=== PATIENT | male | born 1965 | race Caucasian/White ===

== ENCOUNTER 2020-10-03 21:39 | Emergency (ER) | payer BC ==
[2020-10-03] MEDS ORDERED: predniSONE 20 MG TAB ONE (22:31)
[2020-10-03] MEDS ORDERED: Ketorolac Tromethamine 30 MG/ML VIAL ONE (22:31)
[2020-10-03] MEDS ORDERED: Cyclobenzaprine 10 MG TAB ONE (22:31)
== END 2020-10-03 23:20 | disposition home or self-care (01) ==
LOC: CSHERS 21:39
DX: M54.5 Low back pain (principal); I10 Essential (primary) hypertension; I48.91 Unspecified atrial fibrillation; Z79.82 Long term (current) use of aspirin; Z79.899 Other long term (current) drug therapy
CPT/HCPCS: 96372; 99283; J1885; J7512

== ENCOUNTER 2021-02-21 07:00 | Inpatient (IN) | payer BC ==
[2021-02-20 13:29] VITALS: BMI 38.9
[2021-02-21] MEDS ORDERED: Acetaminophen 500 MG TAB ONE (07:09)
[2021-02-21] MEDS ORDERED: Gabapentin 300 MG CAP ONE (07:09)
[2021-02-21] MEDS ORDERED: CeleCOXIB 100 MG CAP ONE (07:09)
[2021-02-21] MEDS ORDERED: Lidocaine 1% MPF 2 ML VIAL ONE (07:10)
[2021-02-21] MEDS ORDERED: Levofloxacin 500 mg/D5W 100 ml Premix Bag ONE (08:05)
[2021-02-21] MEDS ORDERED: Ropivacaine 0.2% HCl/PF 20 ML ONE ×2 (08:24→09:16)
[2021-02-21] MEDS ORDERED: Ropivacaine 0.5% HCl/PF (150 MG/30 ML VIAL) ONE ×2 (08:24)
[2021-02-21] MEDS ORDERED: Fentanyl 100 MCG/2 ML VIAL ONE ×4 (08:30→11:51)
[2021-02-21] MEDS ORDERED: Midazolam HCl 2 mg/2 ml Vial ONE (08:30)
[2021-02-21] MEDS ORDERED: PROPOFOL 20 ML ONE ×2 (09:11→10:00)
[2021-02-21] MEDS ORDERED: Ondansetron PF 4 MG/2 ML Vial ONE (09:12)
[2021-02-21] MEDS ORDERED: diphenhydrAMINE 50 MG/ML VIAL ONE (09:12)
[2021-02-21] MEDS ORDERED: Ketorolac Tromethamine 30 MG/ML VIAL ONE ×2 (09:12→09:15)
[2021-02-21] MEDS ORDERED: Lidocaine 2% PF 5 ML VIAL ONE (09:12)
[2021-02-21] MEDS ORDERED: Dexamethasone 4 mg/ml Vial ONE (09:12)
[2021-02-21] MEDS ORDERED: Heparin 5,000 UNITS/ML VIAL ONE (09:15)
[2021-02-21] MEDS ORDERED: EPINEPHrine 1 MG/ML AMP ONE (09:15)
[2021-02-21] MEDS ORDERED: Ropivacaine 0.2% HCl/PF 40 ML ONE (09:16)
[2021-02-21] MEDS ORDERED: Tranexamic Acid 1,000 MG/10 ML VIAL ONE (09:16)
[2021-02-21] MEDS ORDERED: Lidocaine 1% w/Epinephrine 1:100K 30 ML VIAL ONE (09:17)
[2021-02-21] MEDS ORDERED: Neomycin-Polymyxin 1 ML AMP ONE (09:17)
[2021-02-21] MEDS ORDERED: Zolpidem Tartrate 5 MG TAB PO PRN ×2 (09:41→11:15)
[2021-02-21] MEDS ORDERED: diphenhydrAMINE 25 MG CAP PO PRN (09:41)
[2021-02-21] MEDS ORDERED: Ondansetron PF 4 MG/2 ML Vial IVP PRN ×2 (09:41→11:15)
[2021-02-21] MEDS ORDERED: Promethazine HCl 25 MG/ML VIAL IM PRN ×2 (09:41→11:15)
[2021-02-21] MEDS ORDERED: HYDROcodone/Acetaminophen 10/325 mg Tablet PO PRN (09:41)
[2021-02-21] MEDS ORDERED: Acetaminophen 325 MG TAB PO PRN (09:41)
[2021-02-21] MEDS ORDERED: traMADol HCl 50 MG TAB PO PRN (09:41)
[2021-02-21] MEDS ORDERED: Fentanyl 100 MCG/2 ML VIAL SLOW IVP PRN (09:41)
[2021-02-21] MEDS ORDERED: ePHEDrine Sulfate 50 MG/10 ML VIAL ONE ×2 (10:04→10:48)
[2021-02-21] MEDS ORDERED: Glycopyrrolate 0.2 MG/ML 5 ML SYRINGE ONE (10:32)
[2021-02-21] MEDS ORDERED: Phenylephrine 10 MG/ML VIAL ONE (10:39)
[2021-02-21] MEDS ORDERED: Phenylephrine 10 MG/ML VIAL IV SCH (10:45)
[2021-02-21] MEDS ORDERED: HYDROcodone/Acetaminophen 5/325 mg Tablet PO PRN (11:15)
[2021-02-21] MEDS ORDERED: Ropivacaine HCl/PF 200 MG in Premix Bag 1 BAG NERVE BLCK SCH (11:15)
[2021-02-21] MEDS: Dextrose 5 %-0.45 % NaCl 1,000 ML IV SCH ×2 (14:45→17:23)
[2021-02-21] MEDS ORDERED: Cyclobenzaprine 10 MG TAB PO PRN (15:01)
[2021-02-21] MEDS ORDERED: Lorazepam 1 MG TAB PO PRN (15:10)
[2021-02-21] MEDS: HYDROcodone/Acetaminophen 5/325 mg Tablet PO PRN ×2 (15:34→20:31)
[2021-02-21 16:37] VITALS: BP 112/68; TEMP 97.4
[2021-02-21] MEDS: Ketorolac Tromethamine 30 MG/ML VIAL IVP SCH (17:23)
[2021-02-21] MEDS: CEFAZOLIN 2 GM in Premix Bag 1 BAG IVPB SCH (17:23)
[2021-02-21] MEDS: Dronedarone HCl 400 MG TAB PO SCH (17:23)
[2021-02-21] MEDS ORDERED: Ketorolac Tromethamine 30 MG/ML VIAL IVP SCH (18:00)
[2021-02-21] MEDS ORDERED: Loratadine 10 MG TAB PO SCH (21:00)
[2021-02-21] MEDS: Aspirin 81 mg Enteric Coated Tablet PO SCH (22:08)
[2021-02-21] MEDS: Potassium Chloride 10 MEQ TAB PO SCH (22:09)
[2021-02-22] MEDS: Ketorolac Tromethamine 30 MG/ML VIAL IVP SCH ×2 (00:37→05:58)
[2021-02-22] MEDS: CEFAZOLIN 2 GM in Premix Bag 1 BAG IVPB SCH (00:39)
[2021-02-22] MEDS: HYDROcodone/Acetaminophen 5/325 mg Tablet PO PRN ×2 (03:03→08:15)
[2021-02-22 06:10] LABS: Hemoglobin 11.1 g/dL (13.5-17.5); Mean Corpuscular HGB CONC 31.9 g/dL (32.0-36.0); Mean Corpuscular Hemoglobin 30.2 pg (27.0-33.0); Mean Corpuscular Volume 94.6 fl (81.2-95.1); Mean Platelet Volume 9.4 fl (7.4-10.4); Platelet Count 225 10x3/uL (150-450); RBC Distribution Width 13.5 % (11.5-14.5); Red Blood Cell (RBC) Count 3.68 10x6/uL (4.32-5.72); White Blood Cell (WBC) Count 11.4 10x3/uL (3.5-10.5)
[2021-02-22] MEDS: Dextrose 5 %-0.45 % NaCl 1,000 ML IV SCH (07:44)
[2021-02-22] MEDS: Aspirin 81 mg Enteric Coated Tablet PO SCH (08:14)
[2021-02-22] MEDS: Dronedarone HCl 400 MG TAB PO SCH (08:14)
[2021-02-22] MEDS: Potassium Chloride 10 MEQ TAB PO SCH (08:15)
[2021-02-22] MEDS ORDERED: Ferrous Gluconate 324 MG TAB PO SCH (09:00)
[2021-02-22] MEDS ORDERED: Multivitamin W/ Minerals 1 TAB PO SCH (09:00)
[2021-02-22] MEDS ORDERED: Zinc Gluconate 50 MG TAB PO SCH (09:00)
[2021-02-22] MEDS ORDERED: DHA PO SCH (09:00)
[2021-02-22] MEDS ORDERED: OMEGA PO SCH (09:00)
[2021-02-22] MEDS ORDERED: Ascorbic Acid 500 mg Chewable Tablet PO SCH (09:00)
[2021-02-22] MEDS ORDERED: Ubidecarenone 50 MG CAP PO SCH (09:00)
[2021-02-22] MEDS ORDERED: Stress 600 With Zinc 1 TAB PO SCH (09:00)
[2021-02-22] MEDS ORDERED: Senokot S 8.6-50 MG TAB PO SCH (09:00)
[2021-02-22] MEDS ORDERED: GLUCOSAMINE CHONDROITIN COMPLEX PO SCH ×2 (09:00)
[2021-02-22] MEDS ORDERED: FATTY ACIDS PO SCH (09:00)
[2021-02-22] MEDS ORDERED: Hydrochlorothiazide 25 MG TAB PO SCH (09:00)
[2021-02-22] MEDS ORDERED: Lisinopril 20 MG TAB PO SCH (09:00)
[2021-02-22] MEDS ORDERED: Venlafaxine HCl XR 75 MG CAP PO SCH (09:00)
[2021-02-22] MEDS ORDERED: EPA PO SCH (09:00)
[2021-02-24 10:16] LABS: Fungus Stain Final report (.)
[2021-03-22 07:20] LABS: Fungus Culture Final report (.)
== END 2021-02-22 09:40 | disposition home or self-care (01) | DRG 468 ==
LOC: CSHSDC 07:00 → CSHTELE 13:56
PROVIDERS: ADMIT Orthopaedic Surgery; ATTEND Orthopaedic Surgery
PROC: 0SPC0JZ Removal of Synthetic Substitute from Right Knee Joint, Open Approach (ICD-10-PCS; principal; 2021-02-21)
PROC: 0SRC0J9 Replacement of Right Knee Joint with Synthetic Substitute, Cemented, Open Approach (ICD-10-PCS; 2021-02-21)
DX: M17.11 Unilateral primary osteoarthritis, right knee (principal); M25.761 Osteophyte, right knee
CPT/HCPCS: 36415; 36416; 85027; 87070; 87102; 87205; 87206; C1776; J0171; J0690; J0735; J1100; J1200; J1644; J1885; J1956; J2001; J2250; J2370; J2405; J2704; J2795; J3010; J3370; J3490

== ENCOUNTER 2021-02-22 22:47 | Observation (INO) | payer BC ==
[2021-02-23] MEDS ORDERED: Morphine 4 MG/ML VIAL ONE ×3 (00:08→09:08)
[2021-02-23] MEDS ORDERED: HYDROmorphone 0.5 MG/0.5 ML SYRINGE ONE ×2 (01:27→03:45)
[2021-02-23] MEDS ORDERED: Methocarbamol 500 MG TAB PO SCH (01:30)
[2021-02-23 02:07] LABS: ALT (SGPT) 28 U/L (8-55); AST (SGOT) 38 U/L (5-34); Albumin 3.7 g/dL (3.5-5.0); Alkaline Phosphatase 76 U/L (40-110); Anion Gap 14 mmol/L (10-20); BUN (Urea Nitrogen) 18 mg/dL (8.4-25.7); Bilirubin, Total 0.6 mg/dL (0.2-1.2); Calc. Creatinine Clearance 0 mL/min (70-130); Carbon Dioxide 25 mmol/L (22-29); Chloride 105 mmol/L (98-107); Globulin 2.4 g/dL (2.4-3.5); Glucose 94 mg/dL (70-105); Protein, Total 6.1 g/dL (6.0-8.3); Sodium 140 mmol/L (136-145)
[2021-02-23 03:42] LABS: #Basophils 0.1 10x3/uL (0.0-0.2); #Eosinphils 0.4 10x3/uL (0.0-0.5); #Monocytes 0.9 10x3/uL (0.0-1.1); %Basophils 0.6 % (0.0-2.0); %Eosinophils 3.8 % (0.0-6.0); %Lymphocytes 12.6 % (18.0-47.0); %Monocytes 9.4 % (0.0-10.0); %Neutrophils 73.3 % (40.0-75.0); Hemoglobin 11.8 g/dL (13.5-17.5); Mean Corpuscular HGB CONC 32.4 g/dL (32.0-36.0); Mean Corpuscular Volume 92.6 fl (81.2-95.1); Mean Platelet Volume 10.4 fl (7.4-10.4); Platelet Count 254 10x3/uL (150-450); RBC Distribution Width 13.6 % (11.5-14.5); Red Blood Cell (RBC) Count 3.93 10x6/uL (4.32-5.72); White Blood Cell (WBC) Count 9.5 10x3/uL (3.5-10.5)
[2021-02-23] MEDS ORDERED: Ketorolac Tromethamine 30 MG/ML VIAL ONE ×2 (05:07→11:56)
[2021-02-23] MEDS ORDERED: Morphine 4 MG/ML VIAL SLOW IVP PRN (09:03)
[2021-02-23] MEDS ORDERED: Ketorolac Tromethamine 30 MG/ML VIAL IVP PRN (09:03)
[2021-02-23] MEDS ORDERED: Acetaminophen 325 MG TAB PO PRN (09:15)
[2021-02-23] MEDS ORDERED: Ondansetron ODT 4 MG TAB SL PRN (09:15)
[2021-02-23] MEDS ORDERED: Ondansetron PF 4 MG/2 ML Vial IVP PRN (09:15)
[2021-02-23 12:04] VITALS: BMI 38.9
[2021-02-23 14:27] LABS: SARS-CoV-2 NAA Rapid Test Not Detected (NotDetected)
== END 2021-02-23 14:29 | disposition home or self-care (01) ==
LOC: CSHERS 22:47 → CSHERHOLD 02-23 08:11
PROVIDERS: ADMIT Orthopaedic Surgery; ATTEND Orthopaedic Surgery
DX: G89.18 Other acute postprocedural pain (principal); Z96.651 Presence of right artificial knee joint; Z98.890 Other specified postprocedural states; Z20.822 Contact with and (suspected) exposure to COVID-19
CPT/HCPCS: 80053; 85025; 96372; 96374; 96375; 96376; J1170; J1885; J2270; U0002

== ENCOUNTER 2022-05-02 08:18 | Outpatient (CLI) | payer BC ==
[2022-05-02] MEDS ORDERED: Magnevist 469MG/ML 20 ML VIAL ONE (09:26)
== END 2022-05-02 08:19 | disposition home or self-care (01) ==
LOC: CSHMRI 08:18
PROVIDERS: ATTEND Specialist
DX: M51.16 Intervertebral disc disorders with radiculopathy, lumbar region (principal); M47.816 Spondylosis without myelopathy or radiculopathy, lumbar region; Z98.890 Other specified postprocedural states
CPT/HCPCS: 72158

== ENCOUNTER 2022-08-10 12:14 | Outpatient (CLI) | payer BC | END 2022-08-10 12:15 | disposition home or self-care (01) | LOC: CSHCT 12:14 | PROVIDERS: ATTEND Specialist | DX: M51.16 Intervertebral disc disorders with radiculopathy, lumbar region (principal); M47.816 Spondylosis without myelopathy or radiculopathy, lumbar region | CPT/HCPCS: 72131 ==

== ENCOUNTER 2023-02-12 09:04 | Outpatient (CLI) | payer BC ==
[2023-02-12] MEDS ORDERED: Magnevist 469MG/ML 20 ML VIAL ONE (10:51)
== END 2023-02-12 09:05 | disposition home or self-care (01) ==
LOC: CSHSPEC 09:04
PROVIDERS: ATTEND Specialist
DX: M48.062 Spinal stenosis, lumbar region with neurogenic claudication (principal); M51.16 Intervertebral disc disorders with radiculopathy, lumbar region; M47.26 Other spondylosis with radiculopathy, lumbar region; Z98.890 Other specified postprocedural states; M96.843 Postprocedural seroma of a musculoskeletal structure following other procedure
CPT/HCPCS: 72100; 72120; 72158

== ENCOUNTER 2023-08-22 14:40 | Emergency (ER) | payer BC ==
[2023-08-22 15:42] LABS: #Basophils 0.1 10x3/uL (0.0-0.2); #Eosinphils 0.2 10x3/uL (0.0-0.5); #Monocytes 0.4 10x3/uL (0.0-1.1); #Neutrophils 6.5 10x3/uL (1.5-8.4); %Basophils 0.6 % (0.0-2.0); %Lymphocytes 11.2 % (18.0-47.0); %Monocytes 4.9 % (0.0-10.0); %Neutrophils 81.1 % (40.0-75.0); Mean Corpuscular HGB CONC 35.6 g/dL (32.0-36.0); Mean Corpuscular Hemoglobin 31.7 pg (27.0-33.0); Mean Corpuscular Volume 89.1 fl (81.2-95.1); Mean Platelet Volume 9.3 fl (7.4-10.4); Platelet Count 298 10x3/uL (150-450); RBC Distribution Width 12.8 % (11.5-14.5); Red Blood Cell (RBC) Count 5.05 10x6/uL (4.32-5.72)
[2023-08-22 15:57] LABS: ALT (SGPT) 27 U/L (8-55); AST (SGOT) 26 U/L (5-34); Albumin 4.4 g/dL (3.5-5.0); Alkaline Phosphatase 111 U/L (40-110); Anion Gap 16 mmol/L (10-20); BUN (Urea Nitrogen) 10 mg/dL (8.4-25.7); Bilirubin, Total 0.8 mg/dL (0.2-1.2); Calc. Creatinine Clearance 0 mL/min (70-130); Calcium 9.5 mg/dL (7.8-10.44); Carbon Dioxide 25 mmol/L (22-29); Chloride 103 mmol/L (98-107); Estimated GFR 93; Globulin 2.9 g/dL (2.4-3.5); Glucose 117 mg/dL (70-105); Lipase 31 U/L (8-78); Potassium 3.5 mmol/L (3.5-5.1); Protein, Total 7.3 g/dL (6.0-8.3); Sodium 140 mmol/L (136-145)
[2023-08-22] MEDS ORDERED: Ondansetron PF 4 MG/2 ML Vial ONE (16:32)
[2023-08-22 18:17] LABS: Bilirubin Neg (Negative); Blood, Urine Negative (Negative); Clarity Clear (Clear); Glucose, Urine (Dipstick) Normal (Negative); Ketone, Urine 5 mg/dL (Negative); Leukocyte Negative (Negative); Nitrite Negative (Negative); Protein, Urine (Dipstick) 30 mg/dl (Neg-Trace); Urobilinogen Normal mg/dL (Less than 2)
[2023-08-22 18:27] LABS: CAUTI Indications for Culture Pelvic or flank pain; RBC/HPF 0-3 HPF (0-3); Squamous Epithelial 0-3 HPF (0-3); WBC/HPF 0-3 HPF (0-3)
[2023-08-22 18:29] LABS: Mucous/LPF 4+ LPF (<2+)
[2023-08-22 18:30] LABS: Bacteria/HPF 2+ HPF (None Seen)
[2023-08-22 18:31] LABS: Urine Culture Reflex No No
== END 2023-08-22 17:47 | disposition home or self-care (01) ==
LOC: CSHERS 14:40
DX: R11.2 Nausea with vomiting, unspecified (principal); R19.7 Diarrhea, unspecified; G89.29 Other chronic pain; M54.9 Dorsalgia, unspecified; M48.00 Spinal stenosis, site unspecified; I10 Essential (primary) hypertension; I48.91 Unspecified atrial fibrillation; Z87.442 Personal history of urinary calculi; Z55.6 Problems related to health literacy
CPT/HCPCS: 80053; 81001; 83690; 85025; 96361; 96374; J2405